=== PATIENT | female | born 1995 | race African-American/Black ===

== ENCOUNTER 2016-10-21 10:01 | Emergency (ER) | payer OTHER, MEDICAID ==
[2016-10-21] MEDS ORDERED: IBUPROFEN 400 MG TABLET PO STA (10:30)
[2016-10-21] MEDS ORDERED: IBUPROFEN 400 MG TABLET PO ONE (10:34)
== END 2016-10-21 11:02 | disposition home or self-care (01) ==
DX: T23.251A Burn of second degree of right palm, initial encounter (principal); X10.1XXA Contact with hot food, initial encounter; Y92.122 Bedroom in nursing home as the place of occurrence of the external cause; Y99.0 Civilian activity done for income or pay; I10 Essential (primary) hypertension; E11.9 Type 2 diabetes mellitus without complications; Z79.4 Long term (current) use of insulin
CPT/HCPCS: 1040M; 99282; 99283

== ENCOUNTER 2016-11-20 04:20 | Outpatient (CLI) | payer MEDICAID | END 2016-11-20 04:21 | disposition short-term general hospital (02) | LOC: EMS 04:20 | PROVIDERS: ATTEND Surgery | DX: R73.09 Other abnormal glucose (principal); R11.2 Nausea with vomiting, unspecified | CPT/HCPCS: A0425; A0426; A0888 ==

== ENCOUNTER 2019-03-17 05:10 | Outpatient (CLI) | payer MEDICAID | END 2019-03-17 05:11 | disposition EMS.NT | LOC: EMS 05:10 | PROVIDERS: ATTEND Surgery | DX: R56.9 Unspecified convulsions (principal); R73.09 Other abnormal glucose ==

== ENCOUNTER 2019-04-23 10:08 | Outpatient (CLI) | payer MEDICAID | END 2019-04-23 10:09 | disposition critical access hospital (66) | LOC: EMS 10:08 | PROVIDERS: ATTEND Surgery | DX: R11.2 Nausea with vomiting, unspecified (principal); R53.1 Weakness ==

== ENCOUNTER 2019-04-23 10:26 | Emergency (ER) | payer MEDICAID ==
[2019-04-23] MEDS ORDERED: METOCLOPRAMIDE 10 MG/2 ML VIAL IVP STA (10:44)
[2019-04-23] MEDS ORDERED: SODIUM CHLORIDE 0.9% 1,000 ML IV ONE (10:44)
--- NOTE | 2019-04-23 10:47 | ED Physician Documentation ---
PD HPI NVD - Stated complaint Stated Complaint: N/V - Chief complaint Chief Complaint: Abd Pain - History obtained from History obtained from: Patient - History of Present Illness Timing - onset: How many days ago (3) Timing - duration: Days (3) Timing - details: Gradual onset, Still present Associated symptoms: Abdominal pain, Dizzy, Near syncope / syncope, Loss of appetite Contributing factors: Diabetes Improved by: Vomiting Similar symptoms before: Diagnosis (dehydration) Recently seen: Emergency Dept - Additonal information Additional information: 25-year-old female with a history of type 1 diabetes has developed nausea and vomiting over the past 3 days. She has developed abdominal pain associated with this and she continues to have issues with vomiting. She was seen in the emergency department at [facility] this morning at 5 AM. She states that there she received several 100 mL's of fluid and Zofran did not seem to help with the vomiting Reglan did seem to help and she was sent home with a prescription for some Reglan. She does not feel that her diabetes is out of control. Review of Systems Constitutional: reports: Chills. denies: Fever Eyes: denies: Decreased vision Ears: denies: Ear pain Nose: denies: Rhinorrhea / runny nose, Congestion Throat: denies: Sore throat Cardiac: denies: Chest pain / pressure, Palpitations Respiratory: denies: Dyspnea, Cough GI: reports: Abdominal Pain, Nausea, Vomiting : denies: Dysuria, Frequency PD PAST MEDICAL HISTORY - Past Medical History Cardiovascular: Hypertension Endocrine/Autoimmune: Type 1 diabetes - Past Surgical History Past Surgical History: No - Present Medications Home Medications: Ambulatory Orders Medication Instructions Recorded Confirmed Ferrous Sulfate [Iron] 1 tab ORAL DAILY 06/06/13 10/21/16 Lisinopril [Prinivil] 0 mg ORAL DAILY 06/06/13 10/21/16 Chlorthalidone 0 mg ORAL DAILY 10/21/16 10/21/16 Insulin Glargine [Lantus] 32 units SQ DAILY 10/21/16 10/21/16 Insulin Lispro [Humalog] 0 units SQ TIDWM 10/21/16 10/21/16 - Allergies Allergies/Adverse Reactions: Allergies Allergy/AdvReac Type Severity Reaction Status Date / Time hydrocodone bitartrate * Allergy Itching Verified 10/21/16 10:13 [From Vicodin] ibuprofen AdvReac Unknown Verified 10/21/16 10:39 - Social History Does the pt smoke?: No Smoking Status: Never smoker Does the pt drink ETOH?: No Does the pt have substance abuse?: No - Immunizations Immunizations are current?: Yes - POLST Patient has POLST: No PD ED PE NORMAL - Vitals Vital signs reviewed: Yes (tachy and hypertensive) - General General: Alert and oriented X 3, No acute distress, Well developed/nourished - HEENT HEENT: Atraumatic, PERRL, EOMI - Neck Neck: Supple, no meningeal sign, No bony TTP - Cardiac Cardiac: No murmur, Other (tachy to 110) - Respiratory Respiratory: No respiratory distress, Clear bilaterally - Abdomen Abdomen: Soft, Other (mild epigastric tenderness) - Back Back: No CVA TTP, No spinal TTP - Derm Derm: Normal color, Warm and dry, No rash - Extremities Extremities: No deformity, No edema - Neuro Neuro: Alert and oriented X 3, 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, No motor deficit, No sensory deficit, Normal speech Eye Opening: Spontaneous Motor: Obeys Commands Verbal: Oriented GCS Score: 15 - Psych Psych: Normal mood, Normal affect Results - Vitals Vitals: Vital Signs - 24 hr 04/23/19 04/23/19 10:29 12:07 Temperature 37.4 C Heart Rate 119 H 88 Respiratory 18 18 Rate Blood Pressure 173/112 H 147/99 H O2 Saturation 97 98 Oxygen O2 Source Room air - Labs Labs: Laboratory Tests 04/23/19 04/23/19 04/23/19 11:21 11:21 11:21 WBC 9.0 RBC 4.50 Hgb 11.1 L Hct 34.5 L MCV 76.7 L MCH 24.7 L MCHC 32.2 RDW 14.2 Plt Count 265 MPV 10.9 H Neut # (Auto) 8.1 H Lymph # (Auto) 0.7 L [place] # (Auto) 0.2 Eos # (Auto) 0.0 Baso # (Auto) 0.0 Absolute Nucleated RBC 0.00 Nucleated RBC % 0.0 VBG pH VBG pCO2 VBG pO2 VBG HCO3 VBG Total CO2 VBG O2 Saturation VBG Base Excess Sodium 144 Potassium 3.0 L Chloride 108 Carbon Dioxide 23 Anion Gap 13.0 BUN 8 Creatinine 0.8 Estimated GFR (MDRD) 109 Glucose 135 H Lactic Acid 1.7 Calcium 8.9 Total Bilirubin 1.5 H AST 15 ALT 10 Alkaline Phosphatase 36 L Total Protein 7.4 Albumin 3.9 Globulin 3.5 Albumin/Globulin Ratio 1.1 Lipase 21 L Urine Color Urine Clarity Urine pH Ur Specific [place] Urine Protein Urine Glucose (UA) Urine Ketones Urine Occult Blood Urine Nitrite Urine Bilirubin Urine Urobilinogen Ur Leukocyte Esterase Ur Microscopic Review Urine Culture Comments Urine HCG, Qual Serum Ketones NEGATIVE 04/23/19 04/23/19 11:21 12:15 WBC RBC Hgb Hct MCV MCH MCHC RDW Plt Count MPV Neut # (Auto) Lymph # (Auto) [place] # (Auto) Eos # (Auto) Baso # (Auto) Absolute Nucleated RBC Nucleated RBC % VBG pH 7.408 VBG pCO2 39.5 L VBG pO2 34.8 VBG HCO3 24.4 VBG Total CO2 25.6 VBG O2 Saturation 70.4 VBG Base Excess -0.2 Sodium Potassium Chloride Carbon Dioxide Anion Gap BUN Creatinine Estimated GFR (MDRD) Glucose Lactic Acid Calcium Total Bilirubin AST ALT Alkaline Phosphatase Total Protein Albumin Globulin Albumin/Globulin Ratio Lipase Urine Color YELLOW Urine Clarity CLEAR Urine pH 6.0 Ur Specific [place] 1.020 Urine Protein 30 H Urine Glucose (UA) NEGATIVE Urine Ketones >=80 H Urine Occult Blood NEGATIVE Urine Nitrite NEGATIVE Urine Bilirubin NEGATIVE Urine Urobilinogen 0.2 (NORMAL) Ur Leukocyte Esterase NEGATIVE Ur Microscopic Review INDICATED Urine Culture Comments Not Reportable Urine HCG, Qual NEGATIVE Serum Ketones Procedures - IVC sono (time) 1040 Bedside IVC sono: IVC measures (cm) (0.87), IVC collapsed c insp (cm) (complete), Dehydration (est 2 liter deficit) PD MEDICAL DECISION MAKING - ED course Complexity details: reviewed old records, reviewed results, re-evaluated patient, considered differential, d/w patient ED course: 23-year-old type I diabetic with nausea and vomiting is dehydrated on interrogation the inferior vena cava and she is administered intravenous saline and another dose of Reglan. She does have some improvement with this she has some abdominal pain and received some Dilaudid as well. She feels much improved at the conclusion of treatment. She does not have ketoacidosis. I did discuss with the patient use of cannabis and the possibility of cannabis hyperemesis and the patient indicates that she has decreased the amount of cannabis she has been using over the past several weeks and she has not used in the past 2 days. She does state that she was on a new medication prescribed for depression and she was on day 3 of this when her vomiting started and she has not been on this since and has had 2 more days of vomiting. She does not think the medication had anything to do with this. The patient was prescribed Reglan and Zofran today at [facility] and I have encouraged her to use those prescriptions for her treatment. Departure - Departure Disposition: 01 Home, Self Care Clinical Impression: Dehydration, Gastroparesis diabeticorum Diabetes mellitus with hyperglycemia Qualifiers: Diabetes mellitus type: type 1 Qualified Code(s): E10.65 - Type 1 diabetes mellitus with hyperglycemia Condition: Stable Instructions: ED Dehydration, ED Diabetic Gastroparesis Follow-Up: Your, doctor [Other] Comments: Today it appears likely that you have diabetic gastroparesis and this will cause her stomach to operate in reverse fashion. The metoclopramide is the best medication for helping when this happens and we recommend you take another dose of this today. If you have intractable vomiting return to the emergency department.
[2019-04-23 11:28] LABS: VBG PCO2 39.5 mmHg (41-51); VBG PH 7.408 (7.31-7.41)
[2019-04-23] MEDS ORDERED: ONDANSETRON 4 MG/2 ML VIAL IVP STA (11:28)
[2019-04-23] MEDS ORDERED: HYDROmorphone 1 MG/ML CARPUJECT IVP STA (11:28)
[2019-04-23 11:29] LABS: VBG BASE EXCESS -0.2 mmol/L (-2 - +2); VBG PO2 34.8 mmHg (25-47); VBG TOTAL CO2 25.6 mmol/L (24-29)
[2019-04-23 11:36] LABS: BASOPHILS % (AUTO) 0.2 %; HGB - HEMOGLOBIN 11.1 g/dL (12.0-16.0); LYMPHOCYTES # (AUTO) 0.7 10^3/uL (1.5-3.5); LYMPHOCYTES % (AUTO) 7.5 %; MEAN CORPUSCULAR HEMOGLOBIN 24.7 pg (27.0-31.0); MEAN CORPUSCULAR HGB CONC 32.2 g/dL (32.0-36.0); MEAN CORPUSCULAR VOLUME 76.7 fL (81.0-99.0); MEAN PLATELET VOLUME 10.9 fL (7.9-10.8); MONOCYTES # (AUTO) 0.2 10^3/uL (0.0-1.0); MONOCYTES % (AUTO) 1.8 %; NEUTROPHILS # (AUTO) 8.1 10^3/uL (1.5-6.6); NEUTROPHILS % (AUTO) 90.1 %; PLT - PLATELET COUNT 265 10^3/uL (130-450); RED CELL DISTRIBUTION WIDTH 14.2 % (12.0-15.0)
[2019-04-23 11:41] LABS: KETONES, SERUM (ACETEST) NEGATIVE (NEGATIVE)
[2019-04-23 11:44] LABS: ALBUMIN 3.9 g/dL (3.2-5.5); ALBUMIN/GLOBULIN RATIO 1.1 (1.0-2.2); ALKALINE PHOSPHATASE 36 IU/L (42-121); ALT ALANINE AMINOTRANSFERASE 10 IU/L (10-60); AST ASPARTATE AMINOTRANSFERASE 15 IU/L (10-42); BILIRUBIN,TOTAL 1.5 mg/dL (0.2-1.0); BUN - BLOOD UREA NITROGEN 8 mg/dL (6-20); CALCIUM 8.9 mg/dL (8.5-10.3); CARBON DIOXIDE - CO2 23 mmol/L (21-32); CHLORIDE 108 mmol/L (101-111); CREATININE 0.8 mg/dL (0.4-1.0); GFR - MDRD 109 (>89); GLUCOSE 135 mg/dL (70-100); LIPASE 21 U/L (22-51); SODIUM 144 mmol/L (135-145); TOTAL PROTEIN 7.4 g/dL (6.7-8.2)
[2019-04-23] MEDS ORDERED: POTASSIUM CHLORIDE 20 MEQ TABLET PO STA (11:55)
[2019-04-23 12:08] VITALS: BP 147/99
[2019-04-23 12:21] LABS: GLUCOSE, URINE (UA) NEGATIVE (NEGATIVE); KETONES,URINE (UA) >=80 mg/dL (NEGATIVE); LEUKOCYTE ESTERASE, URINE NEGATIVE (NEGATIVE); NITRITE,URINE NEGATIVE (NEGATIVE); OCCULT BLOOD,URINE NEGATIVE (NEGATIVE); PROTEIN,URINE 30 mg/dL (NEGATIVE); UROBILINOGEN,URINE 0.2 (NORMAL) E.U./dL (NORMAL)
[2019-04-23 12:28] LABS: BILIRUBIN,URINE NEGATIVE (NEGATIVE); CLARITY,URINE CLEAR (CLEAR); HCG UR QUAL NEGATIVE; ICTOTEST,URINE NEGATIVE
[2019-04-23 12:40] LABS: BACTERIA,URINE None Seen /HPF (None Seen); RBC,URINE 0-5 /HPF (0-5); SQUAMOUS EPITHELIAL CELL,UR FEW Squamous (<= Few)
[2019-04-23 12:41] LABS: MUCUS,URINE Few Strands
== END 2019-04-23 12:53 | disposition home or self-care (01) ==
LOC: EDUNIT# → ED 10:26
DX: E86.0 Dehydration (principal); E10.43 Type 1 diabetes mellitus with diabetic autonomic (poly)neuropathy; E10.65 Type 1 diabetes mellitus with hyperglycemia; K31.84 Gastroparesis; I10 Essential (primary) hypertension
CPT/HCPCS: 36415; 80053; 81001; 81025; 82009; 82803; 83605; 83690; 85025; 96374; 96375; 99284; A9270; J1170; J2765; 81003; 87086

== ENCOUNTER 2019-08-02 20:44 | Outpatient (CLI) | payer MEDICAID | END 2019-08-02 20:45 | disposition critical access hospital (66) | LOC: EMS 20:44 | PROVIDERS: ATTEND Surgery | DX: R10.9 Unspecified abdominal pain (principal); R11.2 Nausea with vomiting, unspecified; R73.09 Other abnormal glucose | CPT/HCPCS: A0425; A0429 ==

== ENCOUNTER 2019-08-02 21:02 | Emergency (ER) | payer MEDICAID ==
--- NOTE | 2019-08-02 20:55 | ED Physician Documentation ---
History of Present Illness - Stated complaint Stated Complaint: N/V, ABD PAIN - History obtained from History obtained from: Patient (Patient is a 23-year-old female who arrives via ambulance with a chief complaint of nausea and vomiting. She reports she has an insulin-dependent diabetic who also smokes marijuana daily but has been vomiting for the last 2 days and is unable to keep any of her medications down. She denies any fevers headache neck pain or severe abdominal pain.) Review of Systems Constitutional: reports: Reviewed and negative Eyes: reports: Reviewed and negative Ears: reports: Reviewed and negative Nose: reports: Reviewed and negative Throat: reports: Reviewed and negative Cardiac: reports: Reviewed and negative Respiratory: reports: Reviewed and negative GI: reports: Nausea, Vomiting, Reviewed and negative : reports: Reviewed and negative Skin: reports: Reviewed and negative Musculoskeletal: reports: Reviewed and negative Neurologic: reports: Reviewed and negative Psychiatric: reports: Reviewed and negative Endocrine: reports: Reviewed and negative Immunocompromised: reports: Reviewed and negative PD PAST MEDICAL HISTORY - Present Medications Home Medications: Ambulatory Orders Medication Instructions Recorded Confirmed Lisinopril [Prinivil] 0 mg ORAL DAILY 06/06/13 08/02/19 Chlorthalidone 0 mg ORAL DAILY 10/21/16 08/02/19 Insulin Glargine [Lantus] 32 units SQ DAILY 10/21/16 08/02/19 Insulin Lispro [Humalog] 0 units SQ TIDWM 10/21/16 08/02/19 - Allergies Allergies/Adverse Reactions: Allergies Allergy/AdvReac Type Severity Reaction Status Date / Time hydrocodone bitartrate * Allergy Itching Verified 08/02/19 21:10 [From Vicodin] ibuprofen AdvReac Unknown Verified 08/02/19 21:10 PD ED PE NORMAL - Vitals Vital signs reviewed: Yes - General General: Alert and oriented X 3, No acute distress, Well developed/nourished (actively dry heaving into emesis basin, non toxic and non septic appearing. 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, No motor deficit, No sensory deficit, Normal speech - Psych Psych: Normal mood, Normal affect Results - Vitals Vitals: Vital Signs - 24 hr 08/02/19 08/02/19 21:07 23:25 Temperature 37.0 C Heart Rate 137 H 115 H Respiratory 22 16 Rate Blood Pressure 214/132 H 146/96 H O2 Saturation 100 100 Oxygen O2 Source Room air - EKG (time done) 21:34 Rate: Rate (enter#) (111), Tachy Rhythm: Sinus tachycardia [place]: Other (borderline RAD) Intervals: Normal MS, Other (borderline prolonged QT) QRS: Normal Ischemia: Normal ST segments - Labs Labs: Laboratory Tests 08/02/19 08/02/19 08/02/19 21:40 21:40 21:40 WBC 13.1 H RBC 5.20 Hgb 12.3 Hct 38.6 MCV 74.2 L MCH 23.7 L MCHC 31.9 L RDW 14.6 Plt Count 267 MPV 11.3 H Neut # (Auto) 11.7 H Lymph # (Auto) 1.0 L [place] # (Auto) 0.4 Eos # (Auto) 0.0 Baso # (Auto) 0.0 Absolute Nucleated RBC 0.00 Nucleated RBC % 0.0 PT 12.9 H INR 1.1 APTT 25.7 VBG pH VBG pCO2 VBG pO2 VBG HCO3 VBG Total CO2 VBG O2 Saturation VBG Base Excess Sodium 138 Potassium 3.6 Chloride 102 Carbon Dioxide 19 L Anion Gap 17.0 H BUN 13 Creatinine 0.7 Estimated GFR (MDRD) 127 Glucose 241 H Lactic Acid Calcium 9.5 Phosphorus 2.6 Magnesium 1.7 Total Bilirubin 1.9 H AST 22 ALT 13 Alkaline Phosphatase 40 L Total Creatine Kinase 49 Troponin I High Sens Total Protein 8.1 Albumin 4.2 Globulin 3.9 Albumin/Globulin Ratio 1.1 Lipase 22 Ethyl Alcohol < 5.0 Serum Ketones NEGATIVE 08/02/19 08/02/19 08/02/19 21:40 21:40 21:40 WBC RBC Hgb Hct MCV MCH MCHC RDW Plt Count MPV Neut # (Auto) Lymph # (Auto) [place] # (Auto) Eos # (Auto) Baso # (Auto) Absolute Nucleated RBC Nucleated RBC % PT INR APTT VBG pH 7.469 H VBG pCO2 27.1 L VBG pO2 60.2 H VBG HCO3 19.2 L VBG Total CO2 20.1 L VBG O2 Saturation 93.7 H VBG Base Excess -3.0 L Sodium Potassium Chloride Carbon Dioxide Anion Gap BUN Creatinine Estimated GFR (MDRD) Glucose Lactic Acid 2.5 H Calcium Phosphorus Magnesium Total Bilirubin AST ALT Alkaline Phosphatase Total Creatine Kinase Troponin I High Sens 3.5 Total Protein Albumin Globulin Albumin/Globulin Ratio Lipase Ethyl Alcohol Serum Ketones PD MEDICAL DECISION MAKING - ED course Complexity details: re-evaluated patient (23:11 sx resolved, tolerated po challenge want to be dcd home.), other (r/o dka, hydrate, anetiemetics and reval.) Departure - Departure Disposition: 01 Home, Self Care Clinical Impression: Hyperglycemia, IDDM (insulin dependent diabetes mellitus) Vomiting Qualifiers: Vomiting type: unspecified Vomiting Intractability: unspecified Nausea presence: unspecified Qualified Code(s): R11.10 - Vomiting, unspecified Hypertension Qualifiers: Hypertension type: unspecified Qualified Code(s): I10 - Essential (primary) hypertension Condition: Good Instructions: Nausea Vomit Control Follow-Up: YOUR,DOCTOR [Other] - Tomorrow
[2019-08-02] MEDS ORDERED: ONDANSETRON 4 MG/2 ML VIAL IVP STA (21:24)
[2019-08-02] MEDS ORDERED: SODIUM CHLORIDE 0.9% 1,000 ML IV ONE (21:24)
[2019-08-02] MEDS ORDERED: PROMETHAZINE INJ 25 MG in SODIUM CHLORIDE 0.9% 50 ML IV STA (21:26)
[2019-08-02] MEDS ORDERED: fentaNYL 100 MCG/2 ML VIAL IVP STA (21:26)
[2019-08-02 21:44] LABS: BASOPHILS % (AUTO) 0.3 %; HGB - HEMOGLOBIN 12.3 g/dL (12.0-16.0); LYMPHOCYTES % (AUTO) 7.5 %; MEAN CORPUSCULAR HEMOGLOBIN 23.7 pg (27.0-31.0); MEAN CORPUSCULAR HGB CONC 31.9 g/dL (32.0-36.0); MEAN CORPUSCULAR VOLUME 74.2 fL (81.0-99.0); MEAN PLATELET VOLUME 11.3 fL (7.9-10.8); MONOCYTES # (AUTO) 0.4 10^3/uL (0.0-1.0); MONOCYTES % (AUTO) 2.7 %; NEUTROPHILS # (AUTO) 11.7 10^3/uL (1.5-6.6); PLT - PLATELET COUNT 267 10^3/uL (130-450); RED CELL DISTRIBUTION WIDTH 14.6 % (12.0-15.0); WHITE BLOOD COUNT 13.1 x10^3/uL (4.8-10.8)
[2019-08-02 21:47] LABS: VBG PCO2 27.1 mmHg (41-51); VBG PH 7.469 (7.31-7.41); VBG PO2 60.2 mmHg (25-47)
[2019-08-02 21:48] LABS: VBG TOTAL CO2 20.1 mmol/L (24-29)
[2019-08-02 21:54] LABS: INR 1.1 (0.8-1.2); PT - PROTHROMBIN TIME 12.9 secs (9.9-12.6)
[2019-08-02 21:55] LABS: KETONES, SERUM (ACETEST) NEGATIVE (NEGATIVE)
[2019-08-02 22:02] LABS: PARTIAL THROMBOPLASTIN TIME 25.7 secs (24.9-33.3)
[2019-08-02 22:10] LABS: ALBUMIN 4.2 g/dL (3.2-5.5); ALBUMIN/GLOBULIN RATIO 1.1 (1.0-2.2); ALKALINE PHOSPHATASE 40 IU/L (42-121); ALT ALANINE AMINOTRANSFERASE 13 IU/L (10-60); AST ASPARTATE AMINOTRANSFERASE 22 IU/L (10-42); BILIRUBIN,TOTAL 1.9 mg/dL (0.2-1.0); BUN - BLOOD UREA NITROGEN 13 mg/dL (6-20); CALCIUM 9.5 mg/dL (8.5-10.3); CARBON DIOXIDE - CO2 19 mmol/L (21-32); CHLORIDE 102 mmol/L (101-111); CK- CREATINE KINASE 49 IU/L (22-269); CREATININE 0.7 mg/dL (0.4-1.0); GFR - MDRD 127 (>89); GLUCOSE 241 mg/dL (70-100); LIPASE 22 U/L (22-51); MAGNESIUM 1.7 mg/dL (1.7-2.8); PHOSPHORUS 2.6 mg/dL (2.5-4.6); SODIUM 138 mmol/L (135-145); TOTAL PROTEIN 8.1 g/dL (6.7-8.2)
[2019-08-02] MEDS ORDERED: HALOPERIDOL 5 MG/ML VIAL IM STA (23:42)
[2019-08-02 23:49] VITALS: BP 144/83
== END 2019-08-02 23:48 | disposition home or self-care (01) ==
LOC: EDUNIT# → ED 21:02
DX: E11.65 Type 2 diabetes mellitus with hyperglycemia (principal); Z79.4 Long term (current) use of insulin; R11.2 Nausea with vomiting, unspecified; I10 Essential (primary) hypertension; R00.0 Tachycardia, unspecified
CPT/HCPCS: 36415; 80053; 80320; 82009; 82550; 82803; 83605; 83690; 83735; 84100; 84484; 85025; 85610; 85730; 93005; 96365; 96375; 99283; 99284; J7040

== ENCOUNTER 2019-09-17 03:33 | Outpatient (CLI) | payer MEDICAID | END 2019-09-17 03:34 | disposition EMS.NT | LOC: EMS 03:33 | PROVIDERS: ATTEND Surgery | DX: R56.9 Unspecified convulsions (principal); R73.09 Other abnormal glucose ==

== ENCOUNTER 2019-09-29 11:34 | Outpatient (CLI) | payer MEDICAID | END 2019-09-29 11:35 | disposition EMS.NT | LOC: EMS 11:34 | PROVIDERS: ATTEND Surgery | DX: R11.2 Nausea with vomiting, unspecified (principal) ==

== ENCOUNTER 2019-09-29 12:31 | Outpatient (CLI) | payer MEDICAID | END 2019-09-29 12:32 | disposition short-term general hospital (02) | LOC: EMS 12:31 | PROVIDERS: ATTEND Surgery | DX: R11.2 Nausea with vomiting, unspecified (principal) | CPT/HCPCS: A0425; A0429 ==

== ENCOUNTER 2019-10-23 05:15 | Outpatient (CLI) | payer MEDICAID | END 2019-10-23 05:16 | disposition EMS.NT | LOC: EMS 05:15 | PROVIDERS: ATTEND Surgery | DX: R73.09 Other abnormal glucose (principal) ==